=== PATIENT | female | born 1940 | race Caucasian/White ===

== ENCOUNTER 2023-12-10 23:57 | Inpatient (IN) | payer OTHER ==
[~2023-12-10] VITALS: Ht 172.7 cm; Wt 71.9 kg
[2023-12-11] MEDS: MAGNESIUM/ALUMINUM HYDROXIDE/SIMETHICONE 30ML UDC PO STA (00:07)
[2023-12-11] MEDS: ONDANSETRON HCL 4MG/2ML INJ IV STA (00:07)
[2023-12-11 00:34] LABS: BASOPHILS % 0.7 % (0.0-2.0); EOSINOPHILS % 1.1 % (0.0-5.0); HEMATOCRIT. 40.7 % (36.0-48.0); HEMOGLOBIN. 13.7 g/dL (12.0-16.0); LYMPHOCYTES % 30.1 % (20.0-50.0); MEAN CORPUSCULAR HEMOGLOBIN 30.4 pg (28.0-32.0); MEAN CORPUSCULAR HGB CONC 33.5 g/dL (31.0-37.0); MEAN CORPUSCULAR VOLUME 90.6 fL (81.0-99.0); MEAN PLATELET VOLUME 8.2 fl (7.4-10.4); MONOCYTES % 7.2 % (2.0-8.0); NEUTROPHILS % 60.9 % (40.0-76.0); PLATELET 247 x1000/uL (130-400)
[2023-12-11 00:53] LABS: ALANINE AMINOTRANSFERASE 12 IU/L (10-49); ALBUMIN 4.3 g/dL (3.2-4.8); ASPARTATE AMINOTRANSFERASE 34 IU/L (<34); BILIRUBIN TOTAL 0.6 mg/dL (0.1-1.0); CARBON DIOXIDE 22 mEq/L (21-32); CHLORIDE 102 mEq/L (98-107); CREATININE 1.1 mg/dL (0.6-1.0); POTASSIUM 3.7 mEq/L (3.5-5.1); PROTEIN TOTAL 7.5 g/dL (6.0-8.3); SODIUM 132 mEq/L (136-145); UREA NITROGEN BLOOD 16 mg/dL (9-23)
[2023-12-11 01:06] LABS: ETHANOL BLOOD < 10 mg/dL (<10)
[2023-12-11 01:18] LABS: GLUCOSE 531 mg/dL (70-105)
[2023-12-11 01:39] LABS: PROTHROMBIN TIME 10.7 sec (9.6-11.0)
[2023-12-11 01:53] LABS: CLARITY URINE CLEAR (CLEAR); COLOR URINE YELLOW (YELLOW); GLUCOSE URINE 3+ (NEGATIVE); KETONES URINE 1+ (NEGATIVE); LEUKOCYTE ESTERASE URINE TRACE (NEGATIVE); NITRITE URINE NEGATIVE (NEGATIVE); OCCULT BLOOD URINE NEGATIVE (NEGATIVE); PROTEIN URINE TRACE (NEGATIVE); SPECIFIC GRAVITY URINE 1.018 (1.005-1.030); UROBILINOGEN URINE 0.2 E.U./dL (0.2-1.0)
[2023-12-11 02:16] LABS: *AMPHETAMINES SCREEN URINE NEGATIVE (NEGATIVE); *BARBITURATES SCREEN URINE NEGATIVE (NEGATIVE); *BENZODIAZEPINES SCREEN URINE NEGATIVE (NEGATIVE); *COCAINE SCREEN URINE NEGATIVE (NEGATIVE); CANNABINOID URINE SCREEN NEGATIVE (NEGATIVE); ECSTASY MDMA SCREEN URINE NEGATIVE (NEGATIVE); METHADONE URINE SCREEN Neg (NEGATIVE); OPIATES URINE SCREEN NEGATIVE (NEGATIVE); PHENCYCLIDINE URINE SCREEN NEGATIVE (NEGATIVE)
[2023-12-11] MEDS: MAGNESIUM/ALUMINUM HYDROXIDE/SIMETHICONE 30ML UDC PO NR (02:33)
[2023-12-11] MEDS: ONDANSETRON HCL 4MG/2ML INJ IV NR (02:33)
[2023-12-11] MEDS: ACETAMINOPHEN 325MG TABLET PO NR (03:28)
[2023-12-11 03:29] LABS: SQUAMOUS EPITHELIAL CELL URINE FEW /lpf (RARE/1+)
[2023-12-11 03:31] LABS: RBC URINE 0-2 /hpf (0-2)
[2023-12-11 03:32] LABS: BACTERIA URINE NONE SEEN
[2023-12-11] MEDS: INSULIN REGULAR (HUMULIN R) 300UNITS/3ML VIAL SUBCUT NR (03:32)
[2023-12-11] MEDS: LOSARTAN 25 MG TABLET PO NR (03:46)
[2023-12-11] MEDS: INSULIN LISPRO 100 UNITS/ML SUBCUT NR (07:07)
[2023-12-11] MEDS: CLONIDINE 0.1MG TABLET PO NR (07:09)
[2023-12-11 08:54] VITALS: BP 136/71; PULSE 87; RESP 18; TEMP 97.4
[2023-12-11] MEDS ORDERED: IPRATROPIUM/ALBUTEROL 0.5-3(2.5)MG/3ML NEB HHN PRN (10:00)
[2023-12-11] MEDS ORDERED: DOCUSATE SODIUM 100MG CAPSULE PO PRN (10:00)
[2023-12-11] MEDS ORDERED: DEXTROSE 50% WATER 50ML SYRINGE IV PRN ×2 (10:00→10:15)
[2023-12-11] MEDS ORDERED: ONDANSETRON HCL 4MG/2ML INJ IV PRN (10:00)
[2023-12-11] MEDS: ENOXAPARIN 40MG/0.4ML SYR SUBCUT SCH (10:14)
[2023-12-11] MEDS: SODIUM CHLORIDE 0.45% 1,000 ML IV SCH (10:14)
[2023-12-11 11:43] VITALS: BP 168/72; PULSE 72; RESP 20; TEMP 97.9
[2023-12-11] MEDS: INSULIN LISPRO 100 UNITS/ML SUBCUT SCH (12:14)
[2023-12-11] MEDS: BLOOD SUGAR DIAGNOSTIC STRIP TEST SCH (12:14)
[2023-12-11] MEDS: CEFTRIAXONE 1GM/50ML 50 ML IV SCH (12:14)
[2023-12-11] MEDS ORDERED: BLOOD SUGAR DIAGNOSTIC STRIP TEST SCH (12:40)
[2023-12-11 13:39] LABS: CREATINE KINASE 38 IU/L (34-145); CREATINE KINASE MB FRACTION 1.1 ng/mL (0.5-3.6); TROPONIN I HIGH SENSITIVITY 8 ng/L (3.0-34)
[2023-12-11 14:04] VITALS: BP 136/71; PULSE 87; RESP 18; TEMP 97.4
[2023-12-11] MEDS: ACETAMINOPHEN 325MG TABLET PO PRN (15:00)
[2023-12-11 16:25] VITALS: BP 169/70; PULSE 73; RESP 20; TEMP 98.2
[2023-12-11] MEDS: CLONIDINE 0.1MG TABLET PO PRN (17:19)
[2023-12-11 20:52] VITALS: BP 150/87; PULSE 70; RESP 16; TEMP 98.4
[2023-12-11 22:00] VITALS: BP 112/48; PULSE 69; RESP 16; TEMP 97.8
[2023-12-12 04:00] VITALS: BP 130/50; PULSE 63; RESP 19; TEMP 97.1
[2023-12-12 07:55] LABS: CREATINE KINASE 89 IU/L (34-145); CREATINE KINASE MB FRACTION 2.3 ng/mL (0.5-3.6); TROPONIN I HIGH SENSITIVITY 8 ng/L (3.0-34)
[2023-12-12 08:00] VITALS: BP 187/87; PULSE 61; RESP 18; TEMP 97.4
[2023-12-12 12:00] VITALS: BP 160/66; PULSE 62; RESP 18; TEMP 97.9
[2023-12-12] MEDS: AMLODIPINE 10MG TABLET PO SCH (12:15)
[2023-12-12 12:34] LABS: BASOPHILS % 0.4 % (0.0-2.0); EOSINOPHILS % 0.9 % (0.0-5.0); HEMATOCRIT. 39.1 % (36.0-48.0); HEMOGLOBIN. 13.2 g/dL (12.0-16.0); MEAN CORPUSCULAR HEMOGLOBIN 30.6 pg (28.0-32.0); MEAN CORPUSCULAR HGB CONC 33.6 g/dL (31.0-37.0); MEAN PLATELET VOLUME 8.1 fl (7.4-10.4); MONOCYTES % 9.1 % (2.0-8.0); NEUTROPHILS % 64.6 % (40.0-76.0); PLATELET 234 x1000/uL (130-400); RED CELL DISTRIBUTION WIDTH 13.2 % (11.6-14.6); WHITE BLOOD COUNT 9.9 x1000/uL (4.5-11.0)
[2023-12-12 12:43] LABS: ALANINE AMINOTRANSFERASE 10 IU/L (10-49); ALBUMIN 3.6 g/dL (3.2-4.8); ASPARTATE AMINOTRANSFERASE 33 IU/L (<34); BILIRUBIN TOTAL 0.7 mg/dL (0.1-1.0); CALCIUM 8.9 mg/dL (8.7-10.4); CARBON DIOXIDE 26 mEq/L (21-32); CHLORIDE 105 mEq/L (98-107); GLUCOSE 252 mg/dL (70-105); PROTEIN TOTAL 6.5 g/dL (6.0-8.3); SODIUM 135 mEq/L (136-145); UREA NITROGEN BLOOD 16 mg/dL (9-23)
[2023-12-12 16:00] VITALS: BP 160/57; PULSE 69; RESP 18; TEMP 97.8
[2023-12-12] MEDS: LOSARTAN 50 MG TABLET PO SCH (16:36)
[2023-12-12 17:07] VITALS: BP 160/57; PULSE 69; TEMP 97.8; O2SAT 98
[2023-12-12] MEDS ORDERED: INSULIN GLARGINE 100 UNITS/ML SUBCUT SCH (22:00)
== END 2023-12-12 17:35 | disposition home health service (06) | DRG 638 ==
LOC: ER 12-11 00:11 → 7WST 12-11 04:16
PROVIDERS: ADMIT Internal Medicine; ATTEND Internal Medicine
DX: E11.65 Type 2 diabetes mellitus with hyperglycemia (principal); N39.0 Urinary tract infection, site not specified; I10 Essential (primary) hypertension; M25.512 Pain in left shoulder; M25.511 Pain in right shoulder; Z91.148 Patient's other noncompliance with medication regimen for other reason
CPT/HCPCS: 36415; 80053; 80305; 80320; 81003; 82550; 82553; 82962; 83036; 84484; 85025; 93005; 97162; 99285; J0696; J1650; J1815; J2405; G0480

== ENCOUNTER 2023-12-18 11:09 | Emergency (ER) | payer OTHER ==
[~2023-12-18] VITALS: Ht 160 cm; Wt 70.0 kg
[2023-12-18 11:16] VITALS: O2SAT 100
[2023-12-18 12:02] LABS: BASOPHILS % 0.4 % (0.0-2.0); EOSINOPHILS % 1.2 % (0.0-5.0); HEMATOCRIT. 36.3 % (36.0-48.0); HEMOGLOBIN. 12.3 g/dL (12.0-16.0); LYMPHOCYTES % 24.7 % (20.0-50.0); MEAN CORPUSCULAR HEMOGLOBIN 30.9 pg (28.0-32.0); MEAN CORPUSCULAR HGB CONC 33.7 g/dL (31.0-37.0); MEAN CORPUSCULAR VOLUME 91.8 fL (81.0-99.0); MEAN PLATELET VOLUME 8.1 fl (7.4-10.4); MONOCYTES % 7.9 % (2.0-8.0); NEUTROPHILS % 65.8 % (40.0-76.0); PLATELET 253 x1000/uL (130-400); RED BLOOD CELL COUNT 3.96 mill/uL (4.2-5.4); RED CELL DISTRIBUTION WIDTH 13.2 % (11.6-14.6); WHITE BLOOD COUNT 7.3 x1000/uL (4.5-11.0)
[2023-12-18 12:30] LABS: ALANINE AMINOTRANSFERASE 12 IU/L (10-49); ALBUMIN 4.1 g/dL (3.2-4.8); ASPARTATE AMINOTRANSFERASE 38 IU/L (<34); BILIRUBIN TOTAL 0.7 mg/dL (0.1-1.0); CALCIUM 8.8 mg/dL (8.7-10.4); CARBON DIOXIDE 24 mEq/L (21-32); CHLORIDE 105 mEq/L (98-107); CREATININE 0.9 mg/dL (0.6-1.0); GLUCOSE 245 mg/dL (70-105); POTASSIUM 4.4 mEq/L (3.5-5.1); PROTEIN TOTAL 6.6 g/dL (6.0-8.3); SODIUM 135 mEq/L (136-145); TROPONIN I HIGH SENSITIVITY 5 ng/L (3.0-34); UREA NITROGEN BLOOD 24 mg/dL (9-23)
[2023-12-18] MEDS: SODIUM CHLORIDE 0.9% 1,000 ML IV ONE (12:35)
[2023-12-18] MEDS: ONDANSETRON HCL 4MG/2ML INJ IV ONE (12:58)
[2023-12-18] MEDS: DIPHENHYDRAMINE 50MG/ML VIAL IV ONE (16:09)
[2023-12-18] MEDS: HYDRALAZINE HCL 25MG TABLET PO ONE (17:15)
[2023-12-18 17:16] VITALS: BP 179/80; PULSE 72; RESP 16; TEMP 98.1
[2023-12-18] MEDS ORDERED: IOHEXOL-300 100 ML BOTTLE ONE (22:06)
== END 2023-12-18 17:28 | disposition home or self-care (01) ==
LOC: ER 11:09
DX: K62.5 Hemorrhage of anus and rectum (principal); E11.9 Type 2 diabetes mellitus without complications; I10 Essential (primary) hypertension
CPT/HCPCS: 99285; 74177; 96374; 96361; 71045; 96375; 80053; 83880; 83690; 85025; 84484; 36415; 93005; Q9967; J1200; J2405; J7030

== ENCOUNTER 2025-05-20 16:31 | Inpatient (IN) | payer MEDICARE, OTHER ==
[~2025-05-20] VITALS: Ht 162.6 cm; Wt 65.3 kg
[~2025-05-20 16:31] MED LIST: AMLO10TA80 PO; BLOO-1065; HYDR12.54 PO
[2025-05-20 16:40] VITALS: O2SAT 99
[2025-05-20] MEDS: ONDANSETRON HCL 4MG/2ML INJ IV ONE (17:38)
[2025-05-20] MEDS: MORPHINE SULFATE 4 MG/ML INJ (FOR IV/IM USE) IV ONE (17:38)
[2025-05-20 18:04] LABS: BASOPHILS % 0.5 % (0.0-2.0); EOSINOPHILS % 0.6 % (0.0-5.0); HEMATOCRIT. 40.6 % (36.0-48.0); HEMOGLOBIN. 13.9 g/dL (12.0-16.0); LYMPHOCYTES % 22.2 % (20.0-50.0); MEAN PLATELET VOLUME 8.1 fl (7.4-10.4); MONOCYTES % 7.6 % (2.0-8.0); NEUTROPHILS % 69.1 % (40.0-76.0); PLATELET 318 x1000/uL (130-400); RED BLOOD CELL COUNT 4.78 mill/uL (4.2-5.4); RED CELL DISTRIBUTION WIDTH 14.2 % (11.6-14.6)
[2025-05-20 18:18] LABS: CREATININE 1.0 mg/dL (0.6-1.0); INR 1.1
[2025-05-20 18:19] LABS: ETHANOL BLOOD < 10 mg/dL (<10); UREA NITROGEN BLOOD 15 mg/dL (9-23)
[2025-05-20 18:21] LABS: ASPARTATE AMINOTRANSFERASE 42 IU/L (<34); BILIRUBIN DIRECT 0.3 mg/dL (<=3.0); BILIRUBIN TOTAL 1.1 mg/dL (0.1-1.0); PROTEIN TOTAL 7.1 g/dL (6.0-8.3); TROPONIN I HIGH SENSITIVITY 5 ng/L (3.0-34)
[2025-05-20] MEDS: ACETAMINOPHEN 325MG TABLET PO ONE (19:07)
[2025-05-20 20:41] LABS: CLARITY URINE CLEAR (CLEAR); COLOR URINE YELLOW (YELLOW); GLUCOSE URINE NEGATIVE (NEGATIVE); KETONES URINE 4+ (NEGATIVE); LEUKOCYTE ESTERASE URINE NEGATIVE (NEGATIVE); NITRITE URINE NEGATIVE (NEGATIVE); OCCULT BLOOD URINE NEGATIVE (NEGATIVE); PH URINE 5.5 (4.5-8.0); PROTEIN URINE TRACE (NEGATIVE); SPECIFIC GRAVITY URINE 1.019 (1.005-1.030); UROBILINOGEN URINE 1.0 E.U./dL (0.2-1.0)
[2025-05-20 20:57] LABS: *AMPHETAMINES SCREEN URINE NEGATIVE (NEGATIVE); *BARBITURATES SCREEN URINE NEGATIVE (NEGATIVE); *BENZODIAZEPINES SCREEN URINE NEGATIVE (NEGATIVE); *COCAINE SCREEN URINE NEGATIVE (NEGATIVE); METHADONE URINE SCREEN NEGATIVE (NEGATIVE); OPIATES URINE SCREEN PRESUMPTIVE POSITIVE (NEGATIVE); PHENCYCLIDINE URINE SCREEN NEGATIVE (NEGATIVE)
[2025-05-20 20:58] LABS: CANNABINOID URINE SCREEN NEGATIVE (NEGATIVE); ECSTASY MDMA SCREEN URINE NEGATIVE (NEGATIVE)
[2025-05-20 21:30] VITALS: BP 153/64; PULSE 66; RESP 20; TEMP 36.7; TEMP 36.7516; O2SAT 100
[2025-05-20 22:05] LABS: BACTERIA URINE TRACE; RBC URINE 0-2 /hpf (0-2); SQUAMOUS EPITHELIAL CELL URINE 1+ /lpf (RARE/1+); WBC URINE 0-2 /hpf (0-2)
[2025-05-20] MEDS ORDERED: ZOLPIDEM TARTRATE 5MG TABLET PO PRN (23:15)
[2025-05-20] MEDS ORDERED: ACETAMINOPHEN 325MG TABLET PO PRN (23:15)
[2025-05-20] MEDS ORDERED: ONDANSETRON HCL 4MG/2ML INJ IV PRN (23:15)
[2025-05-20] MEDS ORDERED: MAGNESIUM/ALUMINUM HYDROXIDE/SIMETHICONE 30ML UDC PO PRN (23:15)
[2025-05-20] MEDS ORDERED: LOVA40TA73 PO (23:21)
[2025-05-20] MEDS ORDERED: GABA-529 PO (23:22)
[2025-05-20] MEDS ORDERED: DEXTROSE 50% WATER 50ML SYRINGE IV PRN (23:30)
[2025-05-20] MEDS: HYDROCODONE/ACETAMINOPHEN 5/325MG TABLET PO PRN (23:30)
[2025-05-21] VITALS: BP 134/74; PULSE 70; RESP 20; TEMP 36.7; O2SAT 100
[2025-05-21] MEDS: CEFTRIAXONE 1GM/50ML 50 ML IV SCH (01:39)
[2025-05-21] MEDS: SODIUM CHLORIDE 0.9% 1,000 ML IV SCH (01:41)
[2025-05-21 04:00] VITALS: BP 132/67; PULSE 70; RESP 20; TEMP 36.2; O2SAT 94
[2025-05-21] MEDS: BLOOD SUGAR DIAGNOSTIC STRIP TEST SCH (05:43)
[2025-05-21] MEDS: INSULIN LISPRO 100 UNITS/ML SUBCUT SCH (08:10)
[2025-05-21] MEDS: PANTOPRAZOLE SODIUM 40 MG/VIAL IV SCH (08:25)
[2025-05-21] MEDS ORDERED: NALOXONE HCL 0.4MG/ML VIAL IV PRN (10:45)
[2025-05-21] MEDS: ENOXAPARIN 40MG/0.4ML SYR SUBCUT SCH (11:01)
[2025-05-21] MEDS: ASPIRIN 81MG EC TABLET PO SCH (11:02)
[2025-05-21] MEDS: LORAZEPAM 0.5MG TABLET PO PRN (11:02)
[2025-05-21 12:36] VITALS: BP 175/86; PULSE 81; RESP 18; TEMP 36.1; O2SAT 96
[2025-05-21 16:15] VITALS: BP 178/66; PULSE 75; RESP 18; TEMP 37; O2SAT 97
[2025-05-21 17:04] VITALS: BP 178/66; PULSE 75; RESP 18; TEMP 37; O2SAT 97
[2025-05-21] MEDS: ATORVASTATIN CALCIUM 40MG TABLET PO SCH (21:00)
[2025-05-22] MEDS: CEFTRIAXONE 1GM/50ML 50 ML IV SCH (01:00)
[2025-05-22 08:00] VITALS: BP 170/76; PULSE 86; RESP 17; O2SAT 96
[2025-05-22] MEDS: CLONIDINE 0.1MG TABLET PO PRN (10:36)
[2025-05-22 10:56] LABS: BASOPHILS % 0.6 % (0.0-2.0); EOSINOPHILS % 1.2 % (0.0-5.0); HEMATOCRIT. 40.1 % (36.0-48.0); HEMOGLOBIN. 13.5 g/dL (12.0-16.0); LYMPHOCYTES % 20.5 % (20.0-50.0); MONOCYTES % 11.0 % (2.0-8.0); NEUTROPHILS % 66.7 % (40.0-76.0); RED BLOOD CELL COUNT 4.74 mill/uL (4.2-5.4); RED CELL DISTRIBUTION WIDTH 14.3 % (11.6-14.6)
[2025-05-22 11:32] LABS: CREATININE 1.0 mg/dL (0.6-1.0); UREA NITROGEN BLOOD 12.0 mg/dL (9-23)
[2025-05-22] MEDS ORDERED: ASPI-1406 PO (14:18)
[2025-05-22] MEDS ORDERED: LIP40 PO (14:18)
[2025-05-22 14:26] LABS: PLATELET 282 x1000/uL (130-400)
[2025-05-22 16:00] VITALS: BP 147/55; PULSE 85; RESP 16; TEMP 37.5; O2SAT 94
[2025-05-22 18:55] VITALS: BP 167/74; PULSE 77; RESP 18; TEMP 98.6
[2025-05-22 19:37] VITALS: BP 167/74; PULSE 77; RESP 18
== END 2025-05-22 20:42 | disposition hospice, home (50) | DRG 71 ==
LOC: ER 16:31 → EDBEDREQ 17:09 → EDBEDREQTM 19:44 → ENRESERV 20:11 → 7WST 21:05 → 8EST 05-22 08:34
PROVIDERS: ADMIT Internal Medicine; ATTEND Internal Medicine
DX: G93.40 Encephalopathy, unspecified (principal); F02.83 Dementia in other diseases classified elsewhere, unspecified severity, with mood disturbance; I69.351 Hemiplegia and hemiparesis following cerebral infarction affecting right dominant side; Z74.01 Bed confinement status; E11.9 Type 2 diabetes mellitus without complications; G30.9 Alzheimer's disease, unspecified; I10 Essential (primary) hypertension; Z90.710 Acquired absence of both cervix and uterus
CPT/HCPCS: 36415; 71045; 74176; 80048; 80076; 80305; 80320; 81003; 82962; 83036; 83735; 83880; 84484; 85025; 93005; 99285; J0696; J1650; J1815; J2270; J2405; J2470; J7030; G0480